=== PATIENT | female | born 1975 | race Caucasian/White ===

== ENCOUNTER 2018-07-16 16:58 | Emergency (ER) | payer SELFPAY ==
[2018-07-16 17:13] VITALS: BP 112/65
[2018-07-16] MEDS ORDERED: NORCO 7.5/325 PO ONE (19:30)
[2018-07-16] MEDS ORDERED: MOTRIN PO ONE (19:30)
--- NOTE | 2018-07-16 19:39 | Emergency Department Report ---
ED Fall HPI - General Chief Complaint: Fall Stated Complaint: RT SIDE/KNEE PAIN FALL AT WORK Time Seen by Provider: 07/16/18 18:10 Source: patient Mode of arrival: Wheelchair - History of Present Illness Initial Comments: This is a 43-year-old female nontoxic, well nourished in appearance, no acute signs of distress presents to the ED with c/o of right lateral rib pain and right knee pain status post fall that occurred today. Patient stated she was taking out about a 40 pound of chicken box and slipped on a ground level fall and landed on her right knee and the chicken box landed on her right rib area. Patient denies back pain or neck pain. Patient denies any head trauma. Patient denies any chest pain, shortness of breath, fever, chills, nausea, vomiting, headache, stiff neck, numbness or tingling. Patient denies any allergies to significant past medical history. MD Complaint: fall -: This evening Fall From: standing Place Fall Occurred: work Loss of Consciousness: none Prolonged Down Time?: no Symptoms Prior to Fall: none Location: other (right rib ) Location - Extremities: Right: Knee Severity: mild Severity scale (0 -10): 8 Quality: aching Context: tripped/slipped Associated Symptoms: denies. denies: headache, neck pain, numbness, weakness, chest paint, shortness of breath, abdominal pain, hematuria, unable to walk, lightheaded, vertigo, confusion - Related Data Previous Rx's Medication Instructions Recorded Last Taken Type Acetaminophen/Codeine [Tylenol 1 tab PO Q6H PRN #12 tab 07/16/18 Unknown Rx /Codeine # 3 tab] Ibuprofen [Motrin] 600 mg PO Q8H PRN #20 tablet 07/16/18 Unknown Rx Allergies Allergy/AdvReac Type Severity Reaction Status Date / Time No Known Allergies Allergy Unverified 07/16/18 17:13 ED Review of Systems ROS: Stated complaint: RT SIDE/KNEE PAIN FALL AT WORK Other details as noted in HPI Constitutional: denies: chills, fever Eyes: denies: eye pain, eye discharge, vision change ENT: denies: ear pain, throat pain Respiratory: denies: cough, shortness of breath, wheezing Cardiovascular: denies: chest pain, palpitations Endocrine: no symptoms reported Gastrointestinal: denies: abdominal pain, nausea, diarrhea Genitourinary: denies: urgency, dysuria, discharge Musculoskeletal: denies: back pain, joint swelling, arthralgia Skin: denies: rash, lesions Neurological: denies: headache, weakness, paresthesias Psychiatric: denies: anxiety, depression Hematological/Lymphatic: denies: easy bleeding, easy bruising ED Past Medical Hx - Past Medical History Previous Medical History?: No - Surgical History Past Surgical History?: No - Social History Smoking Status: Never Smoker Substance Use Type: None - Medications Home Medications: Home Medications Medication Instructions Recorded Confirmed Last Taken Type Acetaminophen/Codeine [Tylenol 1 tab PO Q6H PRN #12 tab 07/16/18 Unknown Rx /Codeine # 3 tab] Ibuprofen [Motrin] 600 mg PO Q8H PRN #20 tablet 07/16/18 Unknown Rx ED Physical Exam - General Limitations: Language Barrier General appearance: alert, in no apparent distress - Head Head exam: Present: atraumatic, normocephalic - Eye Eye exam: Present: normal appearance Pupils: Present: normal accommodation - ENT ENT exam: Present: normal exam, mucous membranes moist - Neck Neck exam: Present: normal inspection, full ROM. Absent: tenderness, meningismus, lymphadenopathy - Respiratory Respiratory exam: Present: normal lung sounds bilaterally, chest wall tenderness (right lateral rib ). Absent: respiratory distress, wheezes, rales, rhonchi, stridor, accessory muscle use, decreased breath sounds, prolonged expiratory - Cardiovascular Cardiovascular Exam: Present: regular rate, normal rhythm, normal heart sounds. Absent: irregular rhythm, systolic murmur, diastolic murmur, rubs, gallop - GI/Abdominal GI/Abdominal exam: Present: soft, normal bowel sounds. Absent: distended, tenderness, guarding, rebound, rigid, diminished bowel sounds - Rectal Rectal exam: Present: deferred - Extremities Exam Extremities exam: Present: normal inspection, full ROM, tenderness, normal capillary refill. Absent: joint swelling, calf tenderness - Expanded Lower Extremity Exam Right Hip exam: Present: normal inspection, full ROM. Absent: tenderness, swelling Upper Leg exam: Present: normal inspection, full ROM. Absent: tenderness, swelling Knee exam: Present: normal inspection, full ROM, tenderness, abrasion, full knee extension. Absent: swelling, laceration, ecchymosis, deformity, crepidus, dislocation, erythema, effusion, pain w/ pronation/supination, posterior draw sign, pain/laxity with valgus, pain/laxity with varus Lower Leg exam: Present: normal inspection, full ROM. Absent: tenderness, swelling Ankle exam: Present: normal inspection, full ROM. Absent: tenderness, swelling Foot/Toe exam: Present: normal inspection, full ROM. Absent: tenderness, swelling Neuro vascular tendon exam: Present: no vascular compromise. Absent: pulse deficit, abnormal cap refill, motor deficit, sensory deficit, tendon deficit, extremity cold to touch, pallor, abnormal 2-point discrimination, decreased fine /light touch, foot drop, peroneal nerve deficit, significant pain with passive ROM of distal joint Gait: Positive: observed and limited by pain - Back Exam Back exam: Present: normal inspection, full ROM. Absent: tenderness, CVA tenderness (R), CVA tenderness (L), muscle spasm, paraspinal tenderness, vertebral tenderness, rash noted - Neurological Exam Neurological exam: Present: alert, oriented X3, normal gait - Psychiatric Psychiatric exam: Present: normal affect, normal mood - Skin Skin exam: Present: warm, dry, intact, normal color. Absent: rash ED Course Vital Signs 07/16/18 07/16/18 17:05 19:42 Temperature 98.0 F 98.4 F Pulse Rate 79 68 Respiratory 18 18 Rate Blood Pressure 112/65 O2 Sat by Pulse 80 L 98 Oximetry - Reevaluation(s) Reevaluation #1: 07/16/18 19:40 Patient is speaking in full sentences with no signs of distress noted. ED Medical Decision Making - Medical Decision Making This is a 43-year-old female that presents with right rib contusion and right knee strain. Patient is stable and was examined by me. X-ray of the knee and chest CT scan without contrast obtained and dictated by radiologist. Patient was notified of the x-ray and CT report with no questions noted by the patient. Patient fully understanding during interview, physical exam and discharge instructions. This was referred to Follow-up with a primary care doctor in 3-5 days or if symptoms worsen and continue return to emergency room as soon as possible. At time of discharge, the patient does not seem toxic or ill in appearance. No acute signs of distress noted. Patient agrees to discharge treatment plan of care. No further questions noted by the patient. Critical care attestation.: If time is entered above; I have spent that time in minutes in the direct care of this critically ill patient, excluding procedure time. ED Disposition Clinical Impression: Contusion of rib on right side Qualifiers: Encounter type: initial encounter Qualified Code(s): S20.211A - Contusion of right front wall of thorax, initial encounter Strain of right knee Qualifiers: Encounter type: initial encounter Qualified Code(s): S86.911A - Strain of unspecified muscle(s) and tendon(s) at lower leg level, right leg, initial encounter Disposition: TO HOME OR SELFCARE Is pt being admited?: No Does the pt Need Aspirin: No Condition: Stable Instructions: Contusion in Adults (ED), Acetaminophen/Codeine (By mouth), Knee Pain (ED), RICE Therapy (ED) Additional Instructions: Follow-up with a primary care doctor in 3-5 days or if symptoms worsen and continue return to emergency room as soon as possible. Do not operate any machinery while taking Tylenol with codeine as this may cause drowsiness. Prescriptions: Acetaminophen/Codeine [Tylenol /Codeine # 3 tab] 1 tab PO Q6H PRN #12 tab PRN Reason: Pain , Severe (7-10) Ibuprofen [Motrin] 600 mg PO Q8H PRN #20 tablet PRN Reason: Pain Referrals: PRIMARY CARE, [Primary Care Provider] - 3-5 Days HASEEB CHADWICK MD [Staff Physician] - 3-5 Days [facility] [Outside] - 3-5 Days [facility] [Outside] - 3-5 Days Forms: Work/School Release Form(ED) Print Language: ANGUILLAN
--- NOTE | 2018-07-16 20:48 | XRay Report ---
FINAL REPORT PROCEDURE: Right knee. TECHNIQUE: Three views. HISTORY: Knee pain. COMPARISON: No prior studies are available for comparison. FINDINGS: The bones appear intact without fracture or dislocation. The joint spaces appear normal. The soft tissues are unremarkable. There is no evidence of a knee effusion. IMPRESSION: Normal study.
--- NOTE | 2018-07-16 21:05 | Cat Scan Report ---
FINAL REPORT PROCEDURE: CT chest without contrast. TECHNIQUE: Computerized axial tomography of the chest was performed without contrast material. This study is performed without intravenous contrast and the sensitivity for pathology, including neoplasms, adenopathy, abscess, pulmonary embolism and aortic dissection, is reduced. HISTORY: Right lateral rib pain. COMPARISON: No prior studies are available for comparison. TECHNICAL QUALITY: Satisfactory. FINDINGS: The trachea and central bronchi appear normal. There is a calcified granuloma near the right major fissure. The lungs are otherwise clear and well expanded. There are no pleural effusions. The thoracic aorta has a normal caliber. There is no mediastinal adenopathy. The heart size is normal. The adrenal glands are not enlarged. The thoracic skeleton appears intact. IMPRESSION: Normal unenhanced study of the chest.
== END 2018-07-16 21:19 | disposition home or self-care (01) ==
LOC: ED 16:58
DX: S86.911A Strain of unspecified muscle(s) and tendon(s) at lower leg level, right leg, initial encounter (principal); S20.211A Contusion of right front wall of thorax, initial encounter; W01.198A Fall on same level from slipping, tripping and stumbling with subsequent striking against other object, initial encounter; Y93.89 Activity, other specified; Y92.89 Other specified places as the place of occurrence of the external cause; Y99.8 Other external cause status
CPT/HCPCS: 71250; 99284